=== PATIENT | male | born 1945 | race Caucasian/White ===

== ENCOUNTER → 2017-10-28 | Outpatient (CLI) | payer MEDICARE ==
[~2017-10-28] MED LIST: ALBUTEROL2.5 MG/NEB IN; AZITHROMYCIN250 M1 PO; AZITHROMYCIN250 MG PO; BISOPROLOL 5MG T5 MG PO; CARDIZEM GENERI30 MG PO; CEFDINIR 300MG300 MG PO; CENTRUM SILVER1 TAB PO; CHEWABLE ASPIRI81 MG PO; FOLIC ACID 1MG T1 MG PO; HYDROCHLOROTHIA25 M1 PO; IPRATROPIUM 2.2.5 ML IH; IPRATROPIUM BROM3 M1 IH; LEVOTHYROXINE0.05 MG PO; LISINOPRIL 5MG T5 MG PO; LISINOPRIL2.5 MG PO; MULTAQ400 MG PO; NATURE'S BLEND400 I1 PO; NIACIN500 M1 PO; OMNICEF 300 MG300 MG PO; OXYGEN3 XX; PREDNISONE 10MG10 MG PO; PREDNISONE 20MG20 MG PO; SIMVASTATIN80 MG PO; SPIRIVA HA1 PUFF/INH IH; SYMBICORT1 AE1 IH; THEOPHYLLINE200 M2 PO; VITAMIN D2000 I1 PO; ZITHROMAX TRI-500 MG PO
[2017-10-28 13:39] LABS: BUN 16 mg/dL (7-18)
[2017-10-28 13:43] LABS: GFR (ESTIMATED) 83 ML/MIN (>60)
[2017-10-28 14:01] LABS: HEMOGLOBIN 13.5 g/dL (14.1-18.0); LYMPH # 1.5 K/mm3 (0.7-4.5); LYMPH % 22.6 % (10-50)
== END ==
LOC: CARL-LAB 10:22
PROVIDERS: Internal Medicine Adolescent Medicine
DX: R17 Unspecified jaundice (principal); C85.90 Non-Hodgkin lymphoma, unspecified, unspecified site

== ENCOUNTER → 2017-10-29 | Outpatient (CLI) | payer MEDICARE, MEDICAID ==
--- NOTE | 2017-10-30 13:02 | RADIOLOGY REPORT PS360 ---
CT ABD PELVIS W/WO CONTRAST INDICATION: Jaundice, non-Hodgkin's lymphoma JAUNDICE,NON-HODGKINS LYMPHOMA ORDERING PHYSICIAN: Dionicio Herbert MD PATIENT AGE: 72 years COMPARISON: 04/07/2014 TECHNIQUE: Axial images are obtained without and with contrast. Sagittal and coronal reformatted images are reviewed as well. Oral contrast was not utilized. FINDINGS: There is hyperinflation in the lung bases consistent with COPD with bronchial thickening. Small retrocrural lymph nodes are once again noted. Unfortunately oral contrast was not utilized. There are multiple unopacified bowel loops in the abdomen and pelvis which could obscure or mimic pathology.. There are at least 3 small hepatic cystic areas the largest in the caudate area of the liver measuring 18 mm previously measuring 15 mm. No calcified gallstones are evident. There is mild intra intrahepatic biliary dilatation. The etiology is indeterminate. The common bile duct does not appear enlarged. A 3 cm exophytic cyst projects off the superior pole the left kidney. No hydronephrosis or obstructing ureteral calculus. Spleen, and adrenal glands are unremarkable. There is pancreatic atrophy. No pancreatic mass evident. There is a moderate amount retained colonic feces throughout the colon and there are multiple unopacified bowel is present in the pelvis. There is mild distention of the urinary bladder. Prostate is enlarged at 5.7 cm transverse and 3.8 cm AP with some central prostate calcification. Seminal vesicles are also somewhat prominent. There is a small amount fluid in the pelvis. No evidence of appendicitis or diverticulitis. No acute bony anomalies. No evidence of abdominal aortic aneurysm. There are postsurgical changes of the intra-abdominal wall without obvious hernia IMPRESSION: 1. Constipation. Multiple unopacified loops of small bowel which could obscure or mimic pathology. 2. Mild intrahepatic biliary ductal dilatation of indeterminate etiology. 3. Prostate enlargement. Distended urinary bladder. 4. Other nonacute findings as described above
== END ==
LOC: RAD 10:58
DX: R17 Unspecified jaundice (principal); C85.90 Non-Hodgkin lymphoma, unspecified, unspecified site
CPT/HCPCS: Q9967